=== PATIENT | female | born 2000 | race Two or more races ===

== ENCOUNTER 2025-02-01 17:09 | Emergency (ER) | payer MEDICAID, SELFPAY ==
[2025-02-01 17:17] VITALS: BP 119/82
[2025-02-01 17:58] LABS: Hematocrit 36.7 % (37.0-47.0); Hemoglobin 11.8 g/dL (12.0-16.0); Mean Corp Hgb Conc. 32.2 g/dL (33.0-37.0); Mean Corpuscular Volume 77.3 fL (81.0-99.0); Nucleated Red Blood Cells % 0 %; Platelet Count 172 10^3/uL (130-400); Red Cell Dist. Width 16.0 % (11.5-14.5)
[2025-02-01 18:09] LABS: ALT (SGPT) 14 U/L (0-35); AST (SGOT) 24 U/L (14-36); Albumin 5.2 g/dl (3.5-5.0); Alkaline Phosphatase 57 U/L (38-126); Blood Urea Nitrogen 11 mg/dl (7-17); Calcium 9.2 mg/dl (8.4-10.2); Carbon Dioxide 25 mmol/L (22-30); Chloride 102 mmol/L (98-107); Glucose 105 mg/dl (70-99); Potassium 4.2 mmol/L (3.5-5.1); Sodium 136 mmol/L (135-145); Total Protein 8.0 g/dl (6.3-8.2); eGFR > 60.00
[2025-02-01 18:24] LABS: Beta HCG Quantitative 12647.00 mIU/ml
[2025-02-01 20:27] VITALS: BP 109/67
[2025-02-01 21:46] VITALS: BMI 21.2
[2025-02-01 21:51] VITALS: BP 125/92
--- NOTE | 2025-02-01 22:28 | ED.GENMED ---
History of Present Illness
General
Chief Complaint: Problems
Time Seen by Provider: 02/01/25 21:51
History of Present Illness
History of Present Illness:
24-year-old female, , presenting for concern of bleeding in . Patient reports she is about 11 weeks by last menstrual period. She has not yet seen OB, her insurance kicks in in about 2 weeks. This morning, had an episode of
spotting, and is now having some brown discharge. Notes some mild lower abdominal cramping. Denies any complications from the thus far. Denies any fever or recent. Denies chest pain or difficulty breathing. Denies urinary complaints.
Denies additional acute medical complaints
Phy Exam
Physical Exam
Physical Exam:
General: Well-appearing, no clinical signs of dehydration, nontoxic and in no acute distress
HEENT: protecting airway
Neck: appears supple
CV: Normal heart rate, regular rhythm
Resp: No accessory muscle use, no increased work of breathing, lungs clear to auscultation bilaterally
Abd: Soft and non-distended, no tenderness to palpation
Extremities: No deformities, no swelling
Neuro: alert, no focal neurologic deficit
: deferred
Rectal: deferred
Psych: Normal affect
Skin: Intact
Course
Orders/Labs/Results
Orders:
Orders
02/01/25 17:30
Type+Screen Urgent
Complete Blood Count/With Diff Urgent
Comprehensive Metabolic Panel Urgent
HCG, Beta Quantitative [Beta HCG Quantitative] Urgent
Is this a screen?: No
Comment: threatened AB
02/01/25 22:05
ABO2 Urgent
BBK Wristband Number:
Associate notified that ABO2 has been ordered: [id number]
Date: 02/01/25
Time: 18:00
Television Reporter ID: [id number]
02/01/25 22:21
US 1st Trimester Urgent
Comment:
Reason For Exam: 11 weeks, spotting and cramping
Abnormal Lab Results
02/01/25
17:30
Hgb 11.8 L g/dL
(12.0-16.0)
Hct 36.7 L %
(37.0-47.0)
MCV 77.3 L fL
(81.0-99.0)
MCH 24.8 L pg
(27.0-31.0)
MCHC 32.2 L g/dL
(33.0-37.0)
RDW 16.0 H %
(11.5-14.5)
MPV 10.7 H fL
(7.4-10.4)
Creatinine 0.5 L mg/dL
(0.6-1.0)
Glucose 105 H mg/dl
(70-99)
Albumin 5.2 H g/dl
(3.5-5.0)
02/01/25 17:30
02/01/25 17:30
Vital Signs
Initial and Last Documented VS:
Initial Vital Signs
Temp Pulse Resp BP Pulse Ox
98.6 F 80 16 119/82 100
02/01/25 17:17 02/01/25 17:17 02/01/25 17:17 02/01/25 17:17 02/01/25 17:17
Last Documented Vital Signs
Temp Pulse Resp BP Pulse Ox
98.2 F 71 16 100/58 99
02/01/25 21:51 02/01/25 23:18 02/01/25 23:18 02/01/25 23:18 02/01/25 23:18
Information
Weeks gestation: Weeks: (11 by LMP)
Location: Location: ([facility], threatened )
MDM/Problems Addressed
MDM/Problems Addressed:
24-year-old female, , presenting for lower abdominal cramping and bleeding in . Vital signs are normal.
On exam patient is well-appearing, no acute distress or discomfort. Patient's symptoms are concerning for threatened miscarriage. She has not yet followed up with OB so ectopic is also consideration. Benign abdominal exam without focal
reproducible tenderness. Given absence of OB care, plan for laboratory analysis and ultrasound imaging.
23:45 -ultrasound is concerning for missed . Patient's gestational sac is measuring close to 8 weeks, and consistent with dating. Additionally there is no evidence of a yolk sac or heart rate. Results were discussed to patient and
family at bedside with copy of ultrasound provided. Patient does not yet have obstetric care secondary to insurance issues. This reason advised that she come back to the hospital in 2 to 3 days for beta quantitative retesting, as well as any
worsening pain or bleeding. Otherwise stable for discharge. Return precautions discussed
*Pulse Oximetry
SaO2: 100
Oxygen Mode of Delivery: Room air
Patient hypoxic: no
*Critical Care Note
Total Time (30-74mins, 75-104mins- exclusive of procedures): Not Applicable
ED Attending Note
-
Portions of this chart may have been created with voice recognition software.� Occasional wrong word or��sound alike� substitutions may have occurred due to the inherent limitations of voice recognition software.
Discharge Plan
Departure
Patient Disposition: Home (Routine Discharge)
Date of Disposition: 02/01/25
Time of Disposition: 23:58
Patient with high blood pressure during this ER visit?: No
Condition: Fair
Discharge Problem:
Miscarriage, threatened, early
Instructions: Miscarriage (DC)
Referrals:
Susi Calvin MD [Active, Gynecology]
NONE,* [Family Provider, Internal Medicine]
Activity Restrictions/Additional Instructions:
You were seen in the emergency department for bleeding in early
You had an ultrasound which showed concern for a miscarriage. You will need to follow-up with an OB doctor in the hospital in 3 days for repeat blood testing as well as possible repeat ultrasound imaging.
Return to the emergency department for any worsening of your symptoms, or any development of chest pain, difficulty breathing, abdominal pain with persistent vomiting and inability to tolerate food or liquid by mouth (concern for dehydration),
weakness, headache or confusion, fever greater than 100.4, or any additional symptoms that are concerning to you.
Thank you for choosing [facility].
Interventions
Interventions:
*Risk Screen - Suicide Last Done: 02/01/25 21:49
*General Assessment Last Done: 02/01/25 21:49
*Neglect/Abuse Screening Last Done: 02/01/25 21:49
*ED- Fall Risk Assessment Last Done: 02/01/25 21:49
*ED COVID-19 Vaccine History Last Done: 02/01/25 21:49
*Nursing Disposition Last Done: 02/02/25 00:05
ED-Female Genitourinary Assessment Last Done: 02/01/25 21:54
Discharge Date and Time
Discharge Date/Time: 02/02/25 00:06
Print Language: KIS[place]HILI
[2025-02-01 23:18] VITALS: BP 100/58
== END 2025-02-02 00:06 | disposition home or self-care (01) ==
LOC: EMR 17:09
PROVIDERS: Emergency Medicine; EMERGENCY PHYSICIAN Student in an Organized Health Care Education/Training Program
DX: O20.0 Threatened abortion (principal); Z59.71 Insufficient health insurance coverage; Z3A.08 8 weeks gestation of pregnancy
CPT/HCPCS: 99284; 76801; 80053; 84702; 85025; 86850; 86900; 86901

== ENCOUNTER 2025-02-05 12:26 | Emergency (ER) | payer SELFPAY ==
[2025-02-05 12:28] VITALS: BP 99/69
[2025-02-05 12:56] LABS: Hematocrit 34.6 % (37.0-47.0); Hemoglobin 11.1 g/dL (12.0-16.0); Mean Corp Hgb Conc. 32.1 g/dL (33.0-37.0); Mean Corpuscular Volume 78.5 fL (81.0-99.0); Nucleated Red Blood Cells % 0 %; Platelet Count 146 10^3/uL (130-400); Red Cell Dist. Width 16.3 % (11.5-14.5)
[2025-02-05 13:20] LABS: ALT (SGPT) 12 U/L (0-35); AST (SGOT) 22 U/L (14-36); Albumin 4.7 g/dl (3.5-5.0); Alkaline Phosphatase 51 U/L (38-126); Blood Urea Nitrogen 9 mg/dl (7-17); Calcium 9.4 mg/dl (8.4-10.2); Carbon Dioxide 24 mmol/L (22-30); Chloride 105 mmol/L (98-107); Glucose 90 mg/dl (70-99); Potassium 4.1 mmol/L (3.5-5.1); Sodium 137 mmol/L (135-145); Total Protein 7.5 g/dl (6.3-8.2); eGFR > 60.00
[2025-02-05 13:30] LABS: Beta HCG Quantitative 5551.20 mIU/ml
--- NOTE | 2025-02-05 14:18 | ED.GENMED ---
History of Present Illness
General
Chief Complaint: Problems
Source: patient
Exam Limitations: none
Time Seen by Provider: 02/05/25 14:02
Nursing documentation reviewed up to this point in time: agreed with
History of Present Illness
History of Present Illness:
Patient is a 24-year-old female approximate [place] weeks G1, P0 was seen here on February 01 for bleeding. Patient reports was approx-11 weeks and had bleeding. Ultrasound was done at that time showed most likely missed miscarriage
with no cardiac activity no yolk sac. Patient's hCG on February 01 was 12,647. She is hear for repeat HCG as she does not have an OBGYN
She does complain of some lower abdominal and lower back pain. Has had mild bright red bleeding Saturday and and now has some brownish color bleeding. denies fevers. Denies lightheadedness dizziness.
Pt here with family
Phy Exam
General Physical Exam
General Presentation: no apparent distress
General age: appears stated age
General Skin: warm and dry
General Habitus: normal
General Mental: alert
General Hydration: appears well hydrated
Gastrointestinal Exam
Gastrointestinal Exam: other (Mild lower abdominal tenderness)
Neurological Exam
Neurological Exam: alert and oriented x3
Musculoskeletal Exam
Musculoskeletal Exam: full ROM
Skin Exam
Skin Exam: normal color and warm/dry
Psychiatric Exam
Psychiatric Exam: normal mood/affect
Course
Orders/Labs/Results
Orders:
Orders
02/05/25 12:40
Complete Blood Count/With Diff Urgent
Comprehensive Metabolic Panel Urgent
HCG,SERUM [Beta HCG Quantitative] Urgent
Is this a screen?: No
Comment: had quantitative on last visit 4 days ago, needs follow up
Abnormal Lab Results
02/05/25
12:40
Hgb 11.1 L g/dL
(12.0-16.0)
Hct 34.6 L %
(37.0-47.0)
MCV 78.5 L fL
(81.0-99.0)
MCH 25.2 L pg
(27.0-31.0)
MCHC 32.1 L g/dL
(33.0-37.0)
RDW 16.3 H %
(11.5-14.5)
Creatinine 0.5 L mg/dL
(0.6-1.0)
02/05/25 12:40
02/05/25 12:40
Vital Signs
Initial and Last Documented VS:
Initial Vital Signs
Temp Pulse Resp BP Pulse Ox
98.8 F 69 16 99/69 100
02/05/25 12:28 02/05/25 12:28 02/05/25 12:28 02/05/25 12:28 02/05/25 12:28
Last Documented Vital Signs
Temp Pulse Resp BP Pulse Ox
98.8 F 62 18 107/72 100
02/05/25 12:28 02/05/25 16:32 02/05/25 16:32 02/05/25 16:32 02/05/25 16:32
Construction Assistant consulted with Physician
Construction Assistant consulted with physician?: Yes
Name of Physician Consulted: Burton
Information
Weeks gestation: N/A
Location: N/A
MDM/Problems Addressed
Differential Diagnosis Includes:
Not limited miscarriage
MDM/Problems Addressed:
As documented patient is a 24-year-old female who was seen here February 01. AT That time she thought she was approximately 11 weeks started bleeding and ultrasound showed most likely missed AB. She was instructed to come back here for
repeat hCG since she has no insurance. hCG is now significantly lower at 5551 compared to 12,647 on February 01. Patient reports she had mild bright red bleeding several days ago but today elevated brown in color bleeding however no clotting bleeding
is not as much as a menses. Case reviewed with Dr. keene ultrasound not required at this time. since HCG decreasing will d/c w/ outpt fu by OBGYN . patient instructed no sexual course nothing in the vagina. If bleeding increases to the
point where she is changing a pad an hour or less than a pad an hour she should return to the ER. Regarding patient's lack of insurance at this time I did review with patient as per Dr. Keene although they do have a payment plan for those
that are not insured.
*Pulse Oximetry
SaO2: 100
Oxygen Mode of Delivery: Room air
Patient hypoxic: no
*Critical Care Note
Total Time (30-74mins, 75-104mins- exclusive of procedures): Not Applicable
Data Reviewed
Review of Other/Old Records Reveals: Labs and Radiology Studies
Source: patient and family
ED Attending Note
-
Portions of this chart may have been created with voice recognition software.� Occasional wrong word or��sound alike� substitutions may have occurred due to the inherent limitations of voice recognition software.
Discharge Plan
Departure
Patient Disposition: Home (Routine Discharge)
Date of Disposition: 02/05/25
Time of Disposition: 16:28
Patient with high blood pressure during this ER visit?: No
Condition: Fair
Covid-19: Not Applicable
Discharge Problem:
MISCARRIAGE
Instructions: Miscarriage (DC)
Referrals:
Fuentes Keene MD [Active, Gynecology]
NONE,* [Family Provider, Internal Medicine]
Activity Restrictions/Additional Instructions:
As discussed please follow-up with [facility] next week. It is likely that you will start bleeding approximately 2 to 4 weeks. If you are changing pads less than every hour you should return to the ER. No sexual intercourse, nothing in the vagina.
Return if any worsening of symptoms including as discussed heavy bleeding increasing abdominal pain, fever chills nausea vomiting or any further concerns.
Interventions
Interventions:
*Risk Screen - Suicide Last Done: 02/05/25 12:28
*General Assessment Last Done: 02/05/25 12:45
*Neglect/Abuse Screening Last Done: 02/05/25 12:45
*ED- Fall Risk Assessment Last Done: 02/05/25 12:45
*ED COVID-19 Vaccine History Last Done: 02/05/25 12:45
*Nursing Disposition Last Done: 02/05/25 17:02
ED-Female Genitourinary Assessment Last Done: 02/05/25 12:45
Discharge Date and Time
Discharge Date/Time: 02/05/25 17:04
Print Language: HUNGARIAN
[2025-02-05 14:40] VITALS: BP 97/59
[2025-02-05 16:32] VITALS: BP 107/72
== END 2025-02-05 17:04 | disposition home or self-care (01) ==
LOC: EMR 12:26
PROVIDERS: Emergency Medicine; EMERGENCY PHYSICIAN Emergency Medicine
DX: O03.9 Complete or unspecified spontaneous abortion without complication (principal); Z3A.11 11 weeks gestation of pregnancy; M54.50 Low back pain, unspecified; Z59.71 Insufficient health insurance coverage
CPT/HCPCS: 99283; 80053; 84702; 85025